=== PATIENT | male | born 1965 | race Caucasian/White ===

== ENCOUNTER 2018-11-26 08:58 | Inpatient (IN) | payer MEDICAID ==
[~2018-11-26] VITALS: Ht 170.2 cm; Wt 70.3 kg
[2018-11-26 09:05] VITALS: Ht 170.2 cm; Wt 70.3 kg
--- NOTE | 2018-11-26 09:08 | NUR ---
PT RETURNED TO LOBBY, +TREMORS TO ELLIE UPPER EXTREMETIES, FRIEND ACCOMPANIED.
--- NOTE | 2018-11-26 10:20 | NUR ---
RECEIVED PT FROM WAITING ROOM. PT HERE FOR ALCOHOL WITHDRAWL SYMPTOMS, SHAKY AND WEAKNESS.
[2018-11-26 11:11] LABS: BASOPHIL % 0.5 % (0-2); PLATELET COUNT 145 x10^3mcL (130-400); RED CELL DISTRIBUTION WIDTH 13.6 % (11.5-14.5)
[2018-11-26 11:18] LABS: CALCIUM 9.3 mg/dL (8.5-10.1); CARBON DIOXIDE 27.2 mmol/L (21-32); CHLORIDE SERUM 96 mmol/L (98-107); CREATININE SERUM 0.7 mg/dL (0.7-1.3); GFR1 > 60 mL/min; GLUCOSE SERUM 153 mg/dL (74-106); POTASSIUM SERUM 4.6 mmol/L (3.5-5.1); SODIUM SERUM 135 mmol/L (136-145)
--- NOTE | 2018-11-26 11:20 | NUR ---
PT APPEARS TO BE RESTING, NO S/S OF DISTRESS. PT REMAINS SEIZURE PRECAUTIONS DUE TO A HX OF. WILL CONTINUE TO MONITOR
[2018-11-26 11:23] LABS: ALBUMIN 3.9 g/dL (3.4-5.0); ALKALINE PHOSPHATASE 104 U/L (46-116); ALT/SGPT 277 U/L (16-63); AST/SGOT 221 U/L (15-37); BILIRUBIN TOTAL 1.3 mg/dL (0.20-1.00); TOTAL PROTEIN, SERUM 7.9 g/dL (6.4-8.2)
[2018-11-26 14:31] LABS: UA SPECIFIC GRAVITY 1.015 (1.005-1.035); microscopic required? YES; urine erythrocyte NEGATIVE (NEGATIVE)
--- NOTE | 2018-11-26 14:35 | NUR ---
RN CALLED TO GIVE REPORT, TOLD BY LUCY THAT THEIR FLOOR JUST RECEIVED 2 PTS FROM ER AND THAT ONE OF HER NURSES ARE ON BREAK. TOLD TO CALL BACK IN 5-10MINS, CHARGE AUSTIN ANDRADE MADE AWARE.
[2018-11-26 14:42] LABS: AMPHETAMINE QUAL UR NONE DETECTED (See below)
[2018-11-26 14:56] LABS: MAGNESIUM 1.9 mg/dL (1.8-2.4); PHOSPHOROUS 3.1 mg/dL (2.5-4.9)
[2018-11-26 14:57] LABS: CHOLESTEROL/HDL RATIO 1.5
--- NOTE | 2018-11-26 15:40 | NUR ---
RECEIVED PT VIA GUERNEY FROM E/D, ACCOMPANIED BY RN AND TRANSPORTER. PT A/A/O X 4, CALM, COOPERATIVE, SEIZURE PRECAUTIONS IN PLACE 2/2 ETOH WITHDRAWAL. ON TELE # 17, HR 73, NSR, DENIES CHEST PAIN OR DISCOMFORT AT THIS TIME. SCD BY BEDSIDE. NO ACUTE RESPIRATORY DISTRESS NOTED. VOIDS FREELY, C/O DARK URINE, NO DYSURIA. GENERALIZED WEAKNESS, NOTED BUE TREMORS 2/2 ETOH WITHDRAWAL, FALL RISK PROTOCOL IN PLACE. SCAB TO L KNEE, ERNIE. IV SITE RFA 20G, CDI. ORIENTED PT TO ROOM, BED CONTROLS, CALL LIGHT SYSTEM. PADDED SIDE RAILS UP X 2, BED IN LOW POSITION. WILL ENDORSE TO LUPE FLORES.
--- NOTE | 2018-11-26 15:51 | NUR ---
PAITENT NERVOUS W/ HAND SHAKING. ATIVAN 1MG PO GIVEN.
[2018-11-26 15:57] VITALS: BP 183/102
--- NOTE | 2018-11-26 16:24 | NUR ---
B/P = 183/102; HANDS SHAKING. DR. FOLEY SAW PATIENT AND AWARE OF. NEW ORDER OF ATIVAN 2MG IVP GIVEN. CONTINUE MONITOR.
[2018-11-26 18:21] VITALS: BP 157/99
--- NOTE | 2018-11-26 19:00 | NUR ---
TOLERATED DINNER. NO N/V. BRP. VOID FREELY. IVF OF NS 80CC/HR PER ORDER. ENDORSED CARE TO NOC NURSE.
--- NOTE | 2018-11-26 19:20 | NUR ---
RECIEVED PT RESTNG IN BED WITH NO ACUTE DISTRESS NOTED AT THIS TIME, ASSESSMENT PERFORMED AT THIS TIME, PT IS A/O X 4 NO COMPLAINTS OF DIZZINESS, PT IS LETHARGIC, PT DENIES CHEST PAIN OR SOB AT THIS TIME, SAFETY PRECAUTIONS IN PLACE, WILL CONTINUE TO MONITOR.
[2018-11-26 21:27] VITALS: BP 137/81
--- NOTE | 2018-11-26 21:41 | NUR ---
MT CALLED AND INFORMED THAT PT HAD ELEVATED HR, CHECKED ON PT IMEDIATELY PT WAS GETTING OUT OF BED, SAT PT DOWN AND ASSESSED, HR RETURNED TO NORMAL, NSR
--- NOTE | 2018-11-26 23:20 | NUR ---
PT IS A/OX 4, EASILY AROUSABLE VERBAL STIMULI, FOLLOWS COMMANDS, NO SHAKING NOTED, PERRL, SYMETRICAL SMILE, SIEZURE PRECAUTIONS IN PLACE, SAFETY PRECAUTIONS IN PLACE, WILL CONTINUE TO MONITOR
--- NOTE | 2018-11-27 01:00 | NUR ---
PT RESTING IN BED WTCHING TV WITH NO ACUTE DISTRESS NOTED, PT DENIES PAIN OR SOB, ALL NEEDS ATENDED TO, SIEZURE PRECAUTIONS AND SAFETY PRECAUTIONS IN PLACE, WILL CONTINUE TO MONITOR
--- NOTE | 2018-11-27 03:17 | NUR ---
PT IS A/OX 4 NO COMPLAINTS OF DIZZINESS, PT COMPLAINS OF MILD YOUNG BEHIND THE EYES (ADMINISTERED TYLENOL PRN PER ORDER) PERRL, SYMETRIC SMILE, RUSS AND SAFETY PRECAUTIONS IN PLACE, WILL CONTINUE TO MONITOR
--- NOTE | 2018-11-27 05:23 | NUR ---
PT RESTED COMFORTABLY THROUGH THE SHIFT, WITH NO ACUTE DISTRESS, PT HAD YOUNG THAT WAS RELIEVED WITH TYLENOL, PT OTHERWISE DENIED PAIN OR SOB, SIEZURE PRECAUTIONS MAINTAINED THROUGH THE NIGHT, PT CALM AND COOPERATIVE, WITH NURSING CARE, ALL NEEDS ATTENDED TO WILL CONITNUE TO MONITOR AND ENDORSE CARE
[2018-11-27 05:39] VITALS: BP 158/85
[2018-11-27 07:04] LABS: CALCIUM 8.8 mg/dL (8.5-10.1); CARBON DIOXIDE 28.5 mmol/L (21-32); CHLORIDE SERUM 100 mmol/L (98-107); CREATININE SERUM 0.7 mg/dL (0.7-1.3); GFR1 > 60 mL/min; GLUCOSE SERUM 96 mg/dL (74-106); LIPASE 348 IU/L (73-393); MAGNESIUM 2.1 mg/dL (1.8-2.4); PHOSPHOROUS 3.7 mg/dL (2.5-4.9); POTASSIUM SERUM 3.6 mmol/L (3.5-5.1); SODIUM SERUM 138 mmol/L (136-145)
[2018-11-27 07:08] LABS: BASOPHIL % 0.5 % (0-2); PLATELET COUNT 132 x10^3mcL (130-400); RED CELL DISTRIBUTION WIDTH 14.1 % (11.5-14.5)
--- NOTE | 2018-11-27 08:00 | NUR ---
SHIFT ASSESSMENT DONE. PATIENT A/A/OX4. TELE#17; SR; HR = 66. NO RESP DISTRESS ON RA. U/S ABD DONE. ABD FLAT/SOFT. DENIED ABD PAIN. IVF OF NS 80CC/HR. IV SITE TO RFA INTACT. STATED SHAKING OF HANDS SUBSIDING. ABLE TO BRP SELFLY. FALL PRECAUTION IN PLACE. CALL LIGHT IN REACH.
[2018-11-27 09:08] VITALS: BP 144/97
[2018-11-27 12:42] VITALS: BP 155/95
--- NOTE | 2018-11-27 13:00 | NUR ---
TOLERATED LUNCH. DENIED PAIN. AMBULATED IN ROOM.
[2018-11-27 17:44] VITALS: BP 128/95
--- NOTE | 2018-11-27 17:54 | NUR ---
A/A/OX4; NO SEIZURE ACTIVITY THIS SHIFT. DENIED PAIN. HANDS SHAKING NOTED. AMBULATED. D/C TO ASSIST LIVING PER ORDER. INSTRUCTION GIVEN. IV D/C'D. OVER NEEDLE CATH INTACT. B/P = 128/95; P = 102; DR. JAIMES AWARE OF. PATIENT IS ON ALCOHOL WITHDRAW.
[2018-11-27 18:02] VITALS: BP 128/95
--- NOTE | 2018-11-27 18:07 | NUR ---
D/C TO ASSIST LIVING BY TAXI. CONDITION STABLE. AMBULATED ON STEADY GAIT.
== END 2018-11-27 18:08 | disposition home or self-care (01) | DRG 775 ==
LOC: ED 08:58 → DU 13:18
PROVIDERS: Emergency Medicine; ADMIT General Practice
DX: F10.239 Alcohol dependence with withdrawal, unspecified (principal); N17.0 Acute kidney failure with tubular necrosis; I10 Essential (primary) hypertension; R74.0 Nonspecific elevation of levels of transaminase and lactic acid dehydrogenase [LDH]; T51.0X1A Toxic effect of ethanol, accidental (unintentional), initial encounter; Y90.0 Blood alcohol level of less than 20 mg/100 ml; R73.03 Prediabetes; E78.5 Hyperlipidemia, unspecified; D72.819 Decreased white blood cell count, unspecified; Z68.24 Body mass index [BMI] 24.0-24.9, adult; Z91.19 Patient's noncompliance with other medical treatment and regimen
CPT/HCPCS: 82962; G0378; G0480; J2060; J2405; J7030; Q0092

== ENCOUNTER 2018-12-03 10:28 | Emergency (ER) | payer MEDICAID ==
[~2018-12-03] VITALS: Ht 165.1 cm; Wt 73.9 kg
[2018-12-03 10:34] VITALS: Ht 165.1 cm; Wt 73.9 kg
[2018-12-03 11:33] VITALS: BP 159/85
== END 2018-12-03 11:33 | disposition home or self-care (01) ==
LOC: ED 10:28
DX: M65.4 Radial styloid tenosynovitis [de Quervain] (principal)